=== PATIENT | female | born 1940 | race Two or more races ===

== ENCOUNTER 2025-03-06 11:07 | Emergency (ER) | payer BC ==
[~2025-03-06] VITALS: Ht 149.9 cm; Wt 49.9 kg
[2025-03-06] MEDS ORDERED: TDAP [DIPH/PERTUSSIS/TET] 0.5 ML VIAL IM ONE (12:10)
[2025-03-06] MEDS: TDAP [DIPH/PERTUSSIS/TET] 0.5 ML VIAL IM ONE (12:19)
[2025-03-06] MEDS ORDERED: AMOX-430 PO (13:15)
[2025-03-06 13:47] VITALS: BP 130/70; TEMP 98.1; O2SAT 96
== END 2025-03-06 13:49 | disposition home or self-care (01) ==
LOC: ER 11:19
DX: S02.31XA Fracture of orbital floor, right side, initial encounter for closed fracture (principal); S01.511A Laceration without foreign body of lip, initial encounter; I10 Essential (primary) hypertension; W01.0XXA Fall on same level from slipping, tripping and stumbling without subsequent striking against object, initial encounter; Y93.89 Activity, other specified; Y92.481 Parking lot as the place of occurrence of the external cause; Y99.9 Unspecified external cause status
CPT/HCPCS: 70450-TC; 70486-TC; 90715